=== PATIENT | male | born 1975 | race Caucasian/White ===

== ENCOUNTER 2020-02-21 20:49 | Emergency (ER) | payer MEDICAID ==
[~2020-02-21 20:49] MED LIST: NKM
[2020-02-21] MEDS ORDERED: HYDROcodone/Acetamin 5/325 tab ORAL ONE (21:15)
[2020-02-21] MEDS ORDERED: IBUPROFEN600 M1 ORAL (21:46)
[2020-02-21] MEDS ORDERED: NORCO 5-325 TA1 EAC1 ORAL (21:46)
== END 2020-02-21 21:50 | disposition home or self-care (01) ==
DX: M25.512 Pain in left shoulder (principal); S01.01XA Laceration without foreign body of scalp, initial encounter; S09.90XA Unspecified injury of head, initial encounter; W11.XXXA Fall on and from ladder, initial encounter; Y92.9 Unspecified place or not applicable
CPT/HCPCS: 12001; 73030; Z7502

== ENCOUNTER 2020-02-27 12:19 | Emergency (ER) | payer MEDICAID ==
[~2020-02-27] VITALS: Ht 177.8 cm; Wt 68.0 kg
[~2020-02-27 12:19] MED LIST changes: +IBUPROFEN600 M1 ORAL; +NORCO 5-325 TA1 EAC1 ORAL
[2020-02-27 12:33] VITALS: BP 136/87
[2020-02-27] MEDS ORDERED: NORCO 5-325 TA1 EAC1 ORAL (12:47)
[2020-02-27 12:50] VITALS: BP 136/87
--- NOTE | 2020-02-27 13:05 | Emergency Room Report ---
History of Present Illness General Chief Complaint: Wound Recheck/Suture Removal Source: Patient Present Illness HPI Disclaimer: Please note that this report is being documented using [employer] technology. This can lead to erroneous entry secondary to incorrect interpretation by the dictating instrument. HPI: 44-year-old male presents for staple removal. [place] were placed by me approximately 1 week ago after a fall from a chair. He also has shoulder contusion. Denies any new injuries. No infection noted in the wound. PMH: Patient denies any medical history. PSH: Reviewed Social Hx: Patient smokes cigarettes and drinks alcohol denies illicit drug use. 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: No Patient History Reviewed Nursing Documentation: PMH: Agreed; PSxH: Agreed Nursing Documentation-PMH Past Medical History: No Stated History Review of Systems All Other Systems: negative except mentioned in HPI Physical Exam Vital Signs Date Time Temp Pulse Resp B/P (MAP) Pulse Ox O2 Delivery O2 Flow Rate FiO2 02/27/20 12:29 98.2 91 22 136/87 (103) 97 Room Air Sp02 EP Interpretation: reviewed, normal General Appearance: well appearing, no apparent distress Head: normocephalic, atraumatic, other - Jovan in place in the scalp no surrounding erythema no drainage from the wound Eyes: bilateral eye PERRL, bilateral eye EOMI ENT: hearing grossly normal, moist mucus membranes Neck: full range of motion, supple Respiratory: lungs clear, normal breath sounds, no rhonchi, no respiratory distress, no retraction, no wheezing Cardiovascular #1: normal peripheral pulses, regular rate, rhythm, no murmur Gastrointestinal: non tender, soft, non-distended, no guarding Musculoskeletal: other - Left shoulder mildly tender to palpation no deformity with full range of motion Neurologic: alert, oriented x3, no focal defects Skin: normal color, warm/dry Medical Decision Making Diagnostic Impression: Primary Impression: Removal of jovan ER Course Patient presents for staple removal jovan removed by me no signs of infection. Patient was seen by me recently for the laceration in addition to shoulder contusion did refill his pain control. Will be discharged home with outpatient follow-up. Last Vital Signs Date Time Temp Pulse Resp B/P (MAP) Pulse Ox O2 Delivery O2 Flow Rate FiO2 02/27/20 12:50 98.2 77 22 136/87 97 Room Air Status: improved Disposition: HOME, SELF-CARE Scripts Hydrocodone Bit/Acetaminophen 5-325* (NORCO 5-325 TABLET*) 1 Each Tablet 1 TAB ORAL Q6H PRN for FOR PAIN, #8 TAB 0 Refills Prov: Marcelo Orantes M.D. 02/27/20 Referrals: [facility] Patient Instructions: Wound Check Additional Instructions: Patient is instructed to follow-up with her primary care doctor, primary care clinic or [facility] in 1 to 2 days. Patient instructed to return for any worsening symptoms or concerns. Disclaimer: Please note that this report is being documented using [employer] technology. This can lead to erroneous entry secondary to incorrect interpretation by the dictating instrument. Marcelo Orantes M.D. Feb 27, 2020 13:05
== END 2020-02-27 12:50 | disposition home or self-care (01) ==
LOC: EMR 12:48
DX: Z48.02 Encounter for removal of sutures (principal); S01.01XD Laceration without foreign body of scalp, subsequent encounter; W07.XXXD Fall from chair, subsequent encounter
CPT/HCPCS: 99281